=== PATIENT | male | born 1960 | race Two or more races ===

== ENCOUNTER 2017-10-19 18:37 | Emergency (ER) | payer OTHER ==
[~2017-10-19] VITALS: Ht 157.5 cm; Wt 68.0 kg
[2017-10-19] MEDS ORDERED: ACETAMINOPHEN ES 500 MG TABLET PO ONE (19:00)
--- NOTE | 2017-10-19 19:04 | NUR ---
REPORT GIVEN TO TATYANA DORSEY FOR TAWANNA.
[2017-10-19] MEDS ORDERED: ACETAMINOPHEN ES 500 MG TABLET ONE (19:06)
--- NOTE | 2017-10-19 19:06 | NUR ---
RECEIVED REPORT FROM TATYANA CLARK FOR TAWANNA.
[2017-10-19 19:13] VITALS: BP 128/75
== END 2017-10-19 21:11 | disposition home or self-care (01) ==
LOC: ER 18:41
DX: M25.551 Pain in right hip (principal); M65.341 Trigger finger, right ring finger
CPT/HCPCS: 73502; A4606; Z7610